=== PATIENT | female | born 1985 | race Caucasian/White ===

== ENCOUNTER 2018-06-03 11:20 | Emergency (ER) | payer OTHER ==
[2018-06-03 13:39] LABS: Bilirubin Negative (Negative); Blood, Urine Negative (Negative); Clarity CLEAR (Clear); Glucose, Urine (Dipstick) Negative (Negative); Leukocyte Negative (Negative); Nitrite Negative (Negative); Protein, Urine (Dipstick) Negative (Neg-Trace); Specific Gravity, Urine 1.005 (1.002-1.036)
[2018-06-03] MEDS ORDERED: Metoclopramide HCl 10 MG/2 ML VIAL ONE (13:49)
[2018-06-03] MEDS ORDERED: diphenhydrAMINE 50 MG/ML VIAL ONE (13:49)
[2018-06-03 13:57] LABS: #Eosinphils 0.1 thou/uL (0.0-0.7); #Lymphocytes 1.5 thou/uL (1.20-3.40); #Monocytes 0.5 thou/uL (0.11-0.59); #Neutrophils 5.6 thou/uL (1.40-6.50); %Eosinophils 0.7 % (0.0-10.0); %Lymphocytes 19.7 % (21.0-51.0); %Neutrophils 73.5 % (42.0-75.0); Hemoglobin 12.9 g/dL (12.0-16.0); Mean Corpuscular HGB CONC 33.8 g/dL (32.0-36.0); Mean Corpuscular Hemoglobin 28.9 pg (27.0-31.0); Mean Corpuscular Volume 85.7 fL (78.0-98.0); Mean Platelet Volume 7.2 fL (7.4-10.4); Platelet Count 246 thou/uL (130-400); RBC Distribution Width 11.6 % (11.5-14.5); Red Blood Cell (RBC) Count 4.46 mill/uL (4.20-5.40); White Blood Cell (WBC) Count 7.6 thou/uL (4.8-10.8)
[2018-06-03 14:19] LABS: ALT (SGPT) 17 U/L (8-55); AST (SGOT) 11 U/L (5-34); Albumin 3.7 g/dL (3.5-5.0); Alkaline Phosphatase 98 U/L (40-150); Anion Gap 13 mmol/L (10-20); BUN (Urea Nitrogen) 6 mg/dL (7.0-18.7); Bilirubin, Total 0.6 mg/dL (0.2-1.2); Calc. Creatinine Clearance 0 mL/min (70-130); Calcium 9.1 mg/dL (7.8-10.44); Carbon Dioxide 22 mmol/L (22-29); Chloride 105 mmol/L (98-107); Estimated GFR-MDRD Greater than 90; Glucose 80 mg/dL (70-105); Potassium 3.5 mmol/L (3.5-5.1); Protein, Total 6.7 g/dL (6.0-8.3); Sodium 136 mmol/L (136-145)
== END 2018-06-03 15:12 | disposition home or self-care (01) ==
LOC: ERS 11:20
DX: O21.0 Mild hyperemesis gravidarum (principal); Z3A.13 13 weeks gestation of pregnancy
CPT/HCPCS: 36415; 80053; 81003; 85025; 96365; 96375; J1200; J2765

== ENCOUNTER 2018-11-28 05:41 | Inpatient (IN) | payer OTHER ==
--- NOTE | 2018-11-27 19:39 | PDOC.LDHP ---
Labor and Delivery H&P Chief complaint: scheduled section HPI: 33 yo @ 39w1d by LMP c/w 7 week CRL who presents for RCS. Pt has h/o LTCS x1 for failed IOL for GHTN vs preE. Pt was counseled on option of TOLAC vs RCS and desires repeat CS . Current gestational age (weeks): 39 Due date: 12/04/18 Dating criteria: last menstrual period Grav: 3 Para: 1 OB History Details: 1 SAB 1 term LTCS for failed IOL Current complications: none Abnormal US findings: No Current medications: pre-elyse vitamins, other (ASA 81 mg) Previous surgical history: low tranverse CS Allergies/Adverse Reactions: Allergies Allergy/AdvReac Type Severity Reaction Status Date / Time No Known Allergies Allergy Verified 11/28/18 06:01 Social history: none - Physical Exam Vital signs reviewed and normal: yes General: NAD Heart: RRR Lungs: nonlabored breathing Abdomen: gravid Extremeties: no edema FHT: category 1 Kennan contractions every: rare - OB Labs Blood type: O RH: positive Antibody Screen: negative HIV: negative RPR: negative HEPSAg: negative 1 hour GCT: negative GBS: negative Urine drug screen: negative Rubella: immune - Assessment 33 yo @ 39w1d LTCS x1 - Plan Plan: to OR for section, informed consent obtained, anesthesia consult for pain management -: Counseled on option of TOLAC vs RCS and desires elective RCS.
[2018-11-28] MEDS ORDERED: hydrALAZINE 20 MG/ML VIAL SLOW IVP PRN ×2 (05:47→10:24)
[2018-11-28] MEDS ORDERED: CEFAZOLIN 2 GM in Sodium Chloride 0.9% 100 ML IVPB SCH (05:47)
[2018-11-28] MEDS ORDERED: Acetaminophen 500 MG TAB PO PRN (05:47)
[2018-11-28] MEDS ORDERED: Ondansetron PF 4 MG/2 ML Vial IVP PRN ×2 (05:47→07:19)
[2018-11-28] MEDS ORDERED: Bicitra 30 ML UDCUP PO SCH (05:47)
[2018-11-28] MEDS ORDERED: Promethazine HCl 25 MG/ML VIAL IM PRN ×3 (05:47→07:19)
[2018-11-28 06:08] VITALS: BMI 34.5
[2018-11-28 06:21] LABS: Hemoglobin 12.8 g/dL (12.0-16.0); Mean Corpuscular HGB CONC 34.6 g/dL (32.0-36.0); Mean Corpuscular Hemoglobin 30.4 pg (27.0-31.0); Mean Corpuscular Volume 87.6 fL (78.0-98.0); Mean Platelet Volume 8.1 fL (7.4-10.4); Platelet Count 186 thou/uL (130-400); RBC Distribution Width 12.7 % (11.5-14.5); Red Blood Cell (RBC) Count 4.22 mill/uL (4.20-5.40)
[2018-11-28 07:00] LABS: Syphilis Antibody Nonreactive (Nonreactive); Syphilis Antibody Index 0.05 S/CO (<1.00 Non-Reactive)
[2018-11-28 07:01] LABS: HBSAg Index 0.27 S/CO (0-0.99); HIV (1/2) Antibody/Antigen Non-Reactive (NonReactive); HIV 1/2 INDEX 0.14 S/CO (<1.00); Hep B Surf Ag Non-Reactive S/CO (NonReactive)
[2018-11-28] MEDS ORDERED: Oxytocin 10 UNITS/ML VIAL ONE (07:10)
[2018-11-28] MEDS ORDERED: Ondansetron PF 4 MG/2 ML Vial ONE ×3 (07:10→17:00)
[2018-11-28] MEDS ORDERED: MORPHINE 5 MG/10 ML PF VIAL ONE (07:10)
[2018-11-28] MEDS ORDERED: Naloxone HCl 0.4 mg/ml Vial IV PRN (07:19)
[2018-11-28] MEDS ORDERED: Ondansetron HCl/PF 4 MG/2 ML Vial IVP PRN (07:19)
[2018-11-28] MEDS ORDERED: Promethazine HCl 25 MG/ML VIAL SLOW IVP PRN (07:19)
[2018-11-28] MEDS ORDERED: Naloxone HCl 0.4 mg/ml Vial IVP PRN ×2 (07:19)
[2018-11-28] MEDS ORDERED: Promethazine HCl 25 MG SUPP PR PRN (07:19)
[2018-11-28] MEDS: Lactated Ringer's 1,000 ML IV SCH ×2 (07:20→20:15)
[2018-11-28] MEDS ORDERED: Communication Order-Pharmacy FS SCH (07:30)
--- NOTE | 2018-11-28 08:44 | PDOC.OPDEL ---
OB Operative/Delivery Note Delivery Dr/Surgeon: Yady Schreiber DO Pre-Delivery Diagnosis: scheduled section Procedure/Post Delivery Dx: repeat low transverse CS Weeks gestation: 39 Anesthesia: spinal - Findings A Sex: male - 1 min: 8 - 5 min: 9 - Additional Findings/Plan Placenta delivered: spontaneous findings: low transverse hysterotomy without extension, normal uterus, normal tubes, normal ovaries Estimated blood loss: QBL 454 cc Compilations/Other Findings: Adhesions from uterus to fascia and peritoneum Thin adhesions from the dome of the bladder to GISELA Otherwise normal appearing uterus Clear amniotic fluid Normal appearing placenta Post delivery plan: routine recovery (Dictation #[id number])
[2018-11-28] MEDS ORDERED: Methylergonovine 0.2 MG/ML VIAL IM PRN (10:24)
[2018-11-28] MEDS ORDERED: Lanolin Ointment 7 GM TUBE TOP PRN (10:24)
[2018-11-28] MEDS ORDERED: NS / Oxytocin 40 units/1000ml 1,000 ML IV SCH (10:24)
[2018-11-28] MEDS ORDERED: Misoprostol 200 MCG TAB PR PRN (10:24)
[2018-11-28] MEDS ORDERED: Simethicone Chewable 80 MG TAB PO PRN (10:24)
[2018-11-28] MEDS ORDERED: Bisacodyl 10 MG SUPP PR PRN (10:24)
[2018-11-28] MEDS ORDERED: Acetaminophen 325 MG TAB PO PRN (10:24)
[2018-11-28] MEDS ORDERED: Zolpidem Tartrate 5 MG TAB PO PRN (10:24)
[2018-11-28] MEDS ORDERED: Prenatal Vitamin 1 TAB PO SCH (11:30)
[2018-11-28] MEDS: diphenhydrAMINE 50 MG/ML VIAL IVP PRN ×2 (12:04→20:08)
[2018-11-28] MEDS: Ketorolac Tromethamine 30 MG/ML VIAL IVP PRN ×2 (12:15→20:08)
--- NOTE | 2018-11-28 13:02 | OP ---
DATE OF PROCEDURE: 11/28/2018 PREOPERATIVE DIAGNOSES: 1. A 39-week and 1 day intrauterine . 2. Previous low-transverse delivery x1. 3. Declines trial of labor. POSTOPERATIVE DIAGNOSES: 1. A 39-week and 1 day intrauterine . 2. Previous low-transverse delivery x1. 3. Declines trial of labor. PROCEDURE PERFORMED: Repeat low-transverse delivery via Pfannenstiel skin incision. PL[employer]AT[employer]Y TEACHER: Agustina Coleman MD COMPLICATIONS: None. ANESTHESIA: Spinal. QBL: 454 mL. IV FLUIDS: 1600 mL. URINARY OUTPUT: 50 mL. FINDINGS: Thick adhesions from the anterior aspect of the uterus to the fascia, thin adhesions from the dome of the bladder to the lower uterine segment. Otherwise, normal-appearing uterus, fallopian tubes, and ovaries bilaterally. Clear amniotic fluid. Viable male in cephalic presentation with Apgars 8 and 9. Weight pending. Hemostasis achieved after closure of hysterotomy. INDICATIONS FOR PROCEDURE: Ms. Karly Goodman is a 33-year-old, G3, P1, at 39 weeks and 1 day, who presents for repeat delivery. The patient has a history of one prior delivery and declined a trial of labor. Her antepartum course has otherwise been benign with the exception of her being on low-dose aspirin for prevention of preeclampsia. PROCEDURE IN DETAIL: The patient was brought to the operating room. She was placed under spinal anesthesia, the patient was placed in supine position with a leftward tilt. She was given Ancef for surgical prophylaxis. She was prepped and draped in sterile fashion. An official time-out was performed. A Pfannenstiel incision was made using the scalpel. This was done slightly lower than the previous scar due to the inaccurate location of the previous Pfannenstiel. The subcutaneous layer was then dissected. The fascia was incised in the midline. The fascial incision was extended using Rodriguez scissors bilaterally. The superior aspect of the fascial incision was grasped using Rita clamps, tented upward, and dissected free from the underlying rectus abdominis muscles, and the same was done to the inferior aspect of the fascial incision. The peritoneum was then elevated and incised using Metzenbaum scissors. The peritoneal incision was extended using both sharp and blunt dissection. There were adhesions along the anterior aspect of the uterus, which were transected using the Bovie. The adhesions along the dome of the bladder were then meticulously dissected using Metzenbaum scissors. Jorge O retractor was then placed into the abdomen, appropriately secured. A low-transverse hysterotomy was made using the scalpel. The hysterotomy was extended using blunt dissection. Amniotic membranes were ruptured noting clear amniotic fluid. Infant was delivered in cephalic presentation. Infant's cord was clamped and cut. Baby was handed to the awaiting Neonatology Team. Cord sample and cord blood were obtained and the placenta was delivered spontaneously intact. The uterus was cleared of all clot and debris. The hysterotomy was closed in a running locking fashion using 1 Monocryl suture creating hemostasis. The pelvis was irrigated and cleared of all clot and debris. The adnexa were evaluated and normal in appearance. The Jorge O retractor was then removed from the abdomen. The adhesions along the anterior aspect of the uterus were evaluated and cauterized using the Bovie creating hemostasis along this site. The peritoneum was then closed in a running fashion using 3-0 chromic. The rectus abdominis muscles were evaluated and hemostatic. The fascia was closed in a running fashion using 0 PDS. Subcutaneous layer was copiously irrigated and hemostatic with use of Bovie. Subcutaneous layer was closed using 3-0 Vicryl and the skin was closed using 4-0 Monocryl and Dermabond. The patient tolerated the procedure well. There were no complications. All counts were correct x3. Job ID: [id number] [facility]
[2018-11-29] MEDS: diphenhydrAMINE 50 MG/ML VIAL IVP PRN (00:19)
[2018-11-29] MEDS: Ketorolac Tromethamine 30 MG/ML VIAL IVP PRN (03:13)
[2018-11-29 05:52] LABS: #Basophils 0.1 thou/uL (0.0-0.2); #Eosinphils 0.2 thou/uL (0.0-0.7); #Lymphocytes 2.8 thou/uL (1.20-3.40); #Monocytes 0.6 thou/uL (0.11-0.59); %Basophils 0.7 % (0.0-1.0); %Eosinophils 1.8 % (0.0-10.0); %Neutrophils 68.5 % (42.0-75.0); Hemoglobin 10.9 g/dL (12.0-16.0); Mean Corpuscular HGB CONC 34.1 g/dL (32.0-36.0); Mean Corpuscular Hemoglobin 30.6 pg (27.0-31.0); Mean Corpuscular Volume 89.7 fL (78.0-98.0); Mean Platelet Volume 8.5 fL (7.4-10.4); Platelet Count 165 thou/uL (130-400); RBC Distribution Width 12.8 % (11.5-14.5); Red Blood Cell (RBC) Count 3.57 mill/uL (4.20-5.40); White Blood Cell (WBC) Count 11.6 thou/uL (4.8-10.8)
--- NOTE | 2018-11-29 08:17 | PDOC.PP ---
Post Progress Note Post Day #: 1 Subjective: doing well, minimal discomfort, [place] regular diet PO intake tolerated: yes Flatus: yes Ambulation: yes Vital Signs (12 hours) Temp Pulse Resp BP Pulse Ox 11/29/18 07:52 98.0 F 81 20 99/60 98 11/29/18 03:16 97.7 F 69 20 112/72 11/29/18 00:18 97.8 F 73 20 108/62 Weight Weight 195 lb - Physical Examination General: NAD Respiratory: non-labored breathing Abdominal: no distention Fundus firm & at: below umb Skin: CS incision dry & intact (dressing partialy removed and incision is clean and intact) Psychiatric: A&Ox3, normal affect Result Diagrams: 11/29/18 05:04 Additional Labs: Post Labs Blood Type O POSITIVE 11/28/18 05:56 Hep Bs Antigen Non-Reactive S/CO (NonReactive) 11/28/18 05:56 (1) delivery delivered Code(s): O82 - ENCOUNTER FOR DELIVERY WITHOUT INDICATION Status: Acute - Assessment/Plan POD1 doing well, plan to advance orders this AM.
[2018-11-29] MEDS: Prenatal Vitamin 1 TAB PO SCH (09:29)
[2018-11-29] MEDS: HYDROcodone/Acetaminophen 5/325 mg Tablet PO PRN ×4 (09:29→22:31)
[2018-11-29] MEDS: Ibuprofen 800 MG TAB PO SCH ×2 (11:15→21:35)
[2018-11-29] MEDS: Lactated Ringer's 1,000 ML IV SCH (21:33)
[2018-11-30] MEDS: HYDROcodone/Acetaminophen 5/325 mg Tablet PO PRN ×2 (04:24→11:27)
[2018-11-30] MEDS: Ibuprofen 800 MG TAB PO SCH (04:25)
[2018-11-30 07:59] VITALS: BP 117/76; TEMP 97.8
[2018-11-30] MEDS: Lactated Ringer's 1,000 ML IV SCH (09:09)
[2018-11-30] MEDS: Prenatal Vitamin 1 TAB PO SCH (09:36)
--- NOTE | 2018-11-30 10:21 | PDOC.PP ---
Post Progress Note Post Day #: 2 Subjective: Minimal pain and lochia. Voiding, passing flatus. Breast feeding. PO intake tolerated: yes Flatus: yes Ambulation: yes Vital Signs (12 hours) Temp Pulse Resp BP Pulse Ox 11/30/18 07:58 97.8 F 68 20 117/76 100 11/30/18 07:15 100 Weight Weight 195 lb - Physical Examination General: NAD Cardiovascular: RRR Respiratory: non-labored breathing Abdominal: no distention, appropriately TTP Extremities: negative homans (B) Skin: CS incision dry & intact, no rash Neurological: no gross focal deficits Psychiatric: A&Ox3, normal affect Result Diagrams: 11/29/18 05:04 Additional Labs: Post Labs Blood Type O POSITIVE 11/28/18 05:56 Hep Bs Antigen Non-Reactive S/CO (NonReactive) 11/28/18 05:56 (1) Anemia Code(s): D64.9 - ANEMIA, UNSPECIFIED Status: Acute Qualifiers: Other causes of anemia: acute posthemorrhagic (2) delivery delivered Code(s): O82 - ENCOUNTER FOR DELIVERY WITHOUT INDICATION Status: Acute - Assessment/Plan PPD2 VSSAF Mild anemia. Cont iron. Plan for d/c home today with infant.
== END 2018-11-30 13:30 | disposition home or self-care (01) | DRG 787 ==
LOC: L&D 05:41 → 3SW 10:40
PROVIDERS: ADMIT Obstetrics & Gynecology; ATTEND Obstetrics & Gynecology
PROC: 10D00Z1 Extraction of Products of Conception, Low, Open Approach (ICD-10-PCS; principal; 2018-11-28)
DX: O34.211 Maternal care for low transverse scar from previous cesarean delivery (principal); D62 Acute posthemorrhagic anemia; O99.62 Diseases of the digestive system complicating childbirth; O99.02 Anemia complicating childbirth; N85.8 Other specified noninflammatory disorders of uterus; K66.0 Peritoneal adhesions (postprocedural) (postinfection); Z3A.39 39 weeks gestation of pregnancy; Z37.0 Single live birth
CPT/HCPCS: 36415; 51702; 85025; 85027; 86780; 86850; 86900; 86901; 87340; 87389; J0690; J1200; J1885; J2274; J2310; J2405; J2550; J2590; J3490

== ENCOUNTER 2024-01-24 09:06 | Emergency (ER) | payer BC ==
[2024-01-24 10:04] LABS: #Basophils 0.07 10x3/uL (0.0-0.2); %Lymphocytes 34.5 % (21.0-51.0); %Neutrophils 56.2 % (42.0-75.0); Hematocrit 44.5 % (36.0-47.0); Hemoglobin 14.5 g/dL (12.0-16.0); Mean Corpuscular HGB CONC 32.6 g/dL (32.0-36.0); Mean Corpuscular Hemoglobin 29.2 pg (27.0-31.0); Mean Corpuscular Volume 89.7 fL (78.0-98.0); Mean Platelet Volume 9.5 fL (7.4-10.4); Platelet Count 289 10x3/uL (130-400); RBC Distribution Width 12.8 % (11.5-14.5); Red Blood Cell (RBC) Count 4.96 mill/uL (4.20-5.40)
[2024-01-24 10:21] LABS: ALT (SGPT) 19 U/L (8-55); AST (SGOT) 21 U/L (5-34); Albumin 4.7 g/dL (3.5-5.0); Alkaline Phosphatase 59 U/L (40-110); Anion Gap 14 mmol/L (10-20); BUN (Urea Nitrogen) 9 mg/dL (7.0-18.7); Bilirubin, Total 0.4 mg/dL (0.2-1.2); Calc. Creatinine Clearance 0 mL/min (70-130); Calcium 9.4 mg/dL (7.8-10.44); Carbon Dioxide 26 mmol/L (22-29); Chloride 104 mmol/L (98-107); Estimated GFR 105; Globulin 3.2 g/dL (2.4-3.5); Glucose 81 mg/dL (70-105); Lipase 23 U/L (8-78); Protein, Total 7.9 g/dL (6.0-8.3); Sodium 140 mmol/L (136-145)
[2024-01-24 10:25] LABS: Troponin I Less than 0.010 ng/mL (< 0.028)
[2024-01-24 11:26] LABS: Magnesium 1.9 mg/dL (1.6-2.6)
[2024-01-24] MEDS ORDERED: Prochlorperazine 10 MG/2 ML VIAL ONE (11:29)
[2024-01-24] MEDS ORDERED: diphenhydrAMINE 50 MG/ML VIAL ONE (11:29)
[2024-01-24 12:26] LABS: Troponin I Less than 0.010 ng/mL (< 0.028)
== END 2024-01-24 13:35 | disposition home or self-care (01) ==
LOC: ERS 09:06
DX: R07.89 Other chest pain (principal); I10 Essential (primary) hypertension; R29.700 NIHSS score 0; Z79.899 Other long term (current) drug therapy
CPT/HCPCS: 36415; 71045; 80053; 83690; 83735; 84443; 84484; 85025; 85379; 93005; 96374; 96375; J0780; J1200